=== PATIENT | female | born 2005 | race Two or more races ===

== ENCOUNTER 2023-03-16 19:30 | Emergency (ER) | payer BC, OTHER ==
[~2023-03-16] VITALS: Ht 165.1 cm; Wt 72.0 kg
[2023-03-16 19:30] VITALS: BP 135/69; PULSE 119; RESP 18; O2SAT 98
[2023-03-16] MEDS ORDERED: diphenhdrAMINE HCL 50 MG/1 ML VL IM ONE (21:00)
[2023-03-16] MEDS ORDERED: methylPREDNISolone SOD SUCC 125 MG/2 ML VL IM ONE (21:00)
[2023-03-16] MEDS ORDERED: FAMOTIDINE 20 MG TAB PO ONE (21:00)
[2023-03-16] MEDS ORDERED: PRED20TA2 PO (22:00)
[2023-03-16] MEDS ORDERED: DIPH25TA54 PO (22:00)
[2023-03-16] MEDS ORDERED: FAMO20TA10 PO (22:00)
== END 2023-03-16 23:55 | disposition home or self-care (01) ==
LOC: ER 19:30
DX: L23.6 Allergic contact dermatitis due to food in contact with the skin (principal); T78.1XXA Other adverse food reactions, not elsewhere classified, initial encounter; Z79.899 Other long term (current) drug therapy; X58.XXXA Exposure to other specified factors, initial encounter
CPT/HCPCS: 96372; 99284; J1200; J2930